=== PATIENT | female | born 1990 | race African-American/Black ===

== ENCOUNTER → 2018-03-08 09:34 | Outpatient (CLI) | payer OTHER, SELFPAY ==
[2018-03-09 08:37] LABS: Vitamin D,25 Hydroxy 26.9 ng/mL (29.95-100.01)
== END ==
PROVIDERS: Visit Provider Podiatrist
DX: S92.309A Fracture of unspecified metatarsal bone(s), unspecified foot, initial encounter for closed fracture (principal); X58.XXXA Exposure to other specified factors, initial encounter; E55.9 Vitamin D deficiency, unspecified
CPT/HCPCS: 36415; 82306